=== PATIENT | female | born 1985 | race Caucasian/White ===

== ENCOUNTER → 2016-10-27 | Outpatient (CLI) | payer OTHER ==
[~2016-10-27] VITALS: Ht 161.3 cm; Wt 84.0 kg
[2016-10-27 16:51] VITALS: BP 124/70
== END | disposition home or self-care (01) ==
LOC: IVINF 16:28
DX: Z31.82 Encounter for Rh incompatibility status (principal); Z3A.28 28 weeks gestation of pregnancy; Z67.31 Type AB blood, Rh negative
CPT/HCPCS: 96372

== ENCOUNTER 2016-12-25 14:30 | Inpatient (IN) | payer OTHER ==
[~2016-12-25] VITALS: Ht 160 cm; Wt 92.5 kg
[2016-12-25] VITALS (20 sets, daily range): BP systolic 121–175; BP diastolic 68–96
[2016-12-25 16:02] LABS: BASOPHIL COUNT 0.1 K/uL (0-0.1); EOSINOPHIL (%) 0 % (0-5); HEMATOCRIT 35.5 % (36.0-46.0); IMMATURE GRANULOCYTE COUNT 0.3 K/uL; INSTRUMENT ABS NEUTROPHIL CT 26.3 K/uL; LYMPHOCYTE COUNT 1.2 K/uL (1.0-2.8); MCH 31.2 PG (29.0-34.0); MCHC 34.6 G/DL (30.0-36.0); MCV 90.1 FL (83-99); MEAN PLAT.VOLUME 9.5 uM^3 (9.5-12.4); MONOCYTE (%) 3.4 % (3-12); NEUTROPHIL (%) 91.2 % (45-76); NEUTROPHIL COUNT 26.3 K/uL (1.8-6.4); PLATELET COUNT 289 K/uL (156-360); RBC DIS.WIDTH-CV 13.4 % (11.8-14.6); RBC DIS.WIDTH-SD 43.8 % (39-53); RED BLOOD COUNT 3.94 M/uL (3.80-5.20); WHITE BLOOD COUNT 28.9 K/uL (4.1-10.2)
[2016-12-25 16:32] LABS: ANION GAP 12 MEQ/L (2-14); CHLORIDE 96 MEQ/L (99-109); POTASSIUM 3.9 MEQ/L (3.7-5.4); SAMPLE HEMOLYSIS CHECK 0; SAMPLE ICTERIC CHECK 0; SAMPLE LIPEMIA CHECK 0
[2016-12-25 16:35] LABS: PROTHROMBIN TIME 10.8 SEC (10.2-12.9)
[2016-12-25 16:38] LABS: ALKALINE PHOSPHATASE 102 IU/L (3-129); GFR ESTIMATE (CALCULATED) > 59 mL/min/; GLUCOSE 90 mg/dL (70-99); UREA NITROGEN (BUN) 7 mg/dL (9-23)
[2016-12-25 16:48] LABS: SODIUM 127 MEQ/L (136-147); TOTAL BILIRUBIN 0.8 MG/DL (0.0-1.0)
[2016-12-25 17:07] LABS: FIBRINOGEN 710 mg/dL (150-450)
[2016-12-25 17:10] LABS: PTT 30.3 SEC (25-37)
[2016-12-25] MEDS ORDERED: ZOFRAN8 MG PO (19:29)
[2016-12-25] MEDS ORDERED: PRENATAL TABLE1 EAC3 PO (19:29)
[2016-12-26 01:06] VITALS: BP 107/60
[2016-12-26 02:06] VITALS: BP 130/67
[2016-12-26 03:06] VITALS: BP 120/67
[2016-12-26 07:32] LABS: BASOPHIL COUNT 0.1 K/uL (0-0.1); EOSINOPHIL (%) 0.3 % (0-5); EOSINOPHIL COUNT 0.1 K/uL (0-0.3); HEMATOCRIT 33.8 % (36.0-46.0); IMMATURE GRANULOCYTE (%) 0.9 % (0.0-0.7); IMMATURE GRANULOCYTE COUNT 0.3 K/uL; INSTRUMENT ABS NEUTROPHIL CT 25.6 K/uL; LYMPHOCYTE COUNT 2.6 K/uL (1.0-2.8); MCH 30.2 PG (29.0-34.0); MCHC 33.1 G/DL (30.0-36.0); MCV 91.1 FL (83-99); MEAN PLAT.VOLUME 9.5 uM^3 (9.5-12.4); MONOCYTE (%) 3.9 % (3-12); MONOCYTE COUNT 1.2 K/uL (0-0.8); NEUTROPHIL (%) 85.9 % (45-76); NEUTROPHIL COUNT 25.6 K/uL (1.8-6.4); PLATELET COUNT 275 K/uL (156-360); RBC DIS.WIDTH-CV 13.5 % (11.8-14.6); RBC DIS.WIDTH-SD 44.1 % (39-53); RED BLOOD COUNT 3.71 M/uL (3.80-5.20); WHITE BLOOD COUNT 29.8 K/uL (4.1-10.2)
[2016-12-26 08:51] VITALS: BP 167/94
[2016-12-26 09:28] VITALS: BP 143/82
[2016-12-26] MEDS ORDERED: AMBIEN5 MG PO (18:58)
[2016-12-26] MEDS ORDERED: PERCOCET 5/31 TABLET PO (21:03)
[2016-12-26] MEDS ORDERED: MOTRIN800 MG PO (21:05)
== END 2016-12-26 21:00 | disposition home or self-care (01) | DRG 775 ==
LOC: LDRP-OP → 2WEST 14:31 → LDRP-OP 12-27 07:27
PROVIDERS: Midwife
PROC: 00HU33Z Insertion of Infusion Device into Spinal Canal, Percutaneous Approach (ICD-10-PCS; principal; 2016-12-25)
PROC: 0HQ9XZZ Repair Perineum Skin, External Approach (ICD-10-PCS; principal; 2016-12-25)
PROC: 3E0S3BZ Introduction of Anesthetic Agent into Epidural Space, Percutaneous Approach (ICD-10-PCS; principal; 2016-12-25)
PROC: 3E0P3VZ Introduction of Hormone into Female Reproductive, Percutaneous Approach (ICD-10-PCS; principal; 2016-12-25)
PROC: 10E0XZZ Delivery of Products of Conception, External Approach (ICD-10-PCS; principal; 2016-12-25)
DX: O36.4XX0 Maternal care for intrauterine death, not applicable or unspecified (principal); O60.14X0 Preterm labor third trimester with preterm delivery third trimester, not applicable or unspecified; O36.0930 Maternal care for other rhesus isoimmunization, third trimester, not applicable or unspecified; O13.4 Gestational [pregnancy-induced] hypertension without significant proteinuria, complicating childbirth; Z37.1 Single stillbirth; Z3A.36 36 weeks gestation of pregnancy; Z87.891 Personal history of nicotine dependence; O36.5930 Maternal care for other known or suspected poor fetal growth, third trimester, not applicable or unspecified; O41.1230 Chorioamnionitis, third trimester, not applicable or unspecified; O70.0 First degree perineal laceration during delivery
CPT/HCPCS: 76805; 80053; 81003; 83030; 85025; 85384; 85610; 85730; 86850; 86870; 86900; 86901; 87070; 87075; 87077; 87186; 87205; 88307; C1755; J0595; J0690; J2405; J2790; J3010; J7120